=== PATIENT | male | born 1945 | race Caucasian/White ===

== ENCOUNTER → 2018-06-17 | Outpatient (CLI) | payer MEDICARE, OTHER ==
[2018-06-17 10:16] LABS: BASOPHILS % (AUTO) 0.9 % (0.0-5.0); EOSINOPHILS % (AUTO) 27.3 % (0.0-8.0); HEMATOCRIT 34.5 % (42-54); LYMPHOCYTES % (AUTO) 13.5 % (21.0-51.0); MEAN CORPUSCULAR HEMOGLOBIN 32.2 pg (27.0-33.0); MEAN CORPUSCULAR HGB CONC 33.7 g/dL (32.0-36.0); MEAN CORPUSCULAR VOLUME 95.6 fL (79-99); MONOCYTES % (AUTO) 9.6 % (3.0-13.0); NEUTROPHILS % (AUTO) 48.7 % (40.0-77.0); PLATELET COUNT (AUTO) 111 K/uL (130-400); RED BLOOD CELL COUNT(AUTO) 3.61 MIL/uL (4.50-6.20); RED CELL DISTRIBUTION WIDTH 14.6 % (11.0-15.5); WHITE BLOOD COUNT (AUTO) 8.2 K/uL (4.8-10.8)
[2018-06-17 10:36] LABS: INR 1.18 (0.85-1.15); PROTHROMBIN TIME 12.3 SEC (9.6-11.6)
[2018-06-17 10:38] LABS: ALBUMIN 1.5 g/dL (3.5-5.0); BILIRUBIN,TOTAL 0.9 mg/dL (0.2-1.0); CREATININE 1.3 mg/dL (0.5-1.5); POTASSIUM 4.9 mmol/L (3.5-5.1); TOTAL PROTEIN, SERUM 4.8 g/dL (6.0-8.3)
== END | disposition home or self-care (01) ==
LOC: RAH 09:41
PROVIDERS: ATTEND Internal Medicine Gastroenterology
DX: K70.31 Alcoholic cirrhosis of liver with ascites (principal); N28.1 Cyst of kidney, acquired
CPT/HCPCS: 36415; 76700; 80053; 82105; 85025; 85610; 93975

== ENCOUNTER → 2020-03-28 | Outpatient (CLI) | payer OTHER ==
[~2020-03-28] MED LIST: ALBUMIN (HUMAN) 25% 200 ML IV SCH
[2020-03-28 08:58] LABS: INR 1.32 (0.85-1.15); PROTHROMBIN TIME 14.1 SEC (9.6-11.6)
--- NOTE | 2020-03-28 09:12 | NUR ---
U/S GUIDED PARACENTESIS PROCEDURE PERFORMED BY DR. MEJIA. PUNCTURE SITE LEFT LOWER QUADRANT AND PATIENT TOLERATED PROCEDURE WELL. TOTAL REMOVED 6.1 LITERS OF YELLOW CLOUDY ASCITES FLUID. END OF PROCEDURE AT 0940 CATHETER REMOVED AND DRESSING APPLIED. NO BLEEDING NOTED. ALBUMIN 25% 50 GRAMS GIVEN IV PER ALBUMIN PROTOCOL. LEFT HAND PIV DC'D, BANDAID APPLIED, DRESSING DRY AND INTACT. DISCHARGE INSTRUCTIONS GIVEN TO PATIENT. PATIENT VERBALIZED UNDERSTANDING. PT DISCHARGED VIA W/C @ 1000. PT STABLE, AAO X 3 WITH NO C/O PAIN.
[2020-03-28 13:44] LABS: BASOPHILS % (AUTO) 0.5 % (0.0-5.0); EOSINOPHILS % (AUTO) 9.3 % (0.0-8.0); LYMPHOCYTES % (AUTO) 14.4 % (21.0-51.0); MEAN CORPUSCULAR HEMOGLOBIN 32.3 pg (27.0-33.0); MEAN CORPUSCULAR HGB CONC 32.4 g/dL (32.0-36.0); MEAN CORPUSCULAR VOLUME 99.7 fL (79-99); MONOCYTES % (AUTO) 11.9 % (3.0-13.0); NEUTROPHILS % (AUTO) 63.5 % (40.0-77.0); PLATELET COUNT (AUTO) 106 K/uL (130-400); RED BLOOD CELL COUNT(AUTO) 2.91 MIL/uL (4.50-6.20); RED CELL DISTRIBUTION WIDTH 14.2 % (11.0-15.5); WHITE BLOOD COUNT (AUTO) 7.7 K/uL (4.8-10.8)
[2020-03-28 13:53] LABS: ALBUMIN 1.4 g/dL (3.5-5.0); BILIRUBIN,TOTAL 1.2 mg/dL (0.2-1.0); POTASSIUM 5.2 mmol/L (3.5-5.1); TOTAL PROTEIN, SERUM 4.6 g/dL (6.0-8.3)
[2020-03-28 13:58] LABS: CREATININE 1.5 mg/dL (0.5-1.5)
[2020-03-28 15:14] LABS: ALBUMIN,BODY FLUID 0.1 g/dL
[2020-03-28 16:05] LABS: APPEARANCE BODY FLUID CLEAR (CLEAR); COLOR,BODY FLUID YELLOW (LT YELLOW); SPECIMENTYPE,BODY FLUID ASCITES
[2020-03-28 16:06] LABS: BODY FLUID RBC 29 /cu. mm.; BODY FLUID WBC 90 /cu. mm.; TOTAL VOLUME,BODY FLUID 6100 mL
[2020-03-28 16:10] LABS: BF LYMPHOCYTE 11 %; BF MESOTHELIAL 1 %; BF OTHER CELLS 1
== END | disposition home or self-care (01) ==
LOC: RAH 07:46
PROVIDERS: ATTEND Internal Medicine Gastroenterology
DX: K70.31 Alcoholic cirrhosis of liver with ascites (principal); Z79.01 Long term (current) use of anticoagulants
CPT/HCPCS: 36415; 49083; 80053; 82042; 84157; 85025; 85610; 87071; 87205; 89051; A4215; P9046; 96365

== ENCOUNTER → 2020-04-11 | Outpatient (CLI) | payer OTHER ==
--- NOTE | 2020-04-11 10:40 | NUR ---
U/S GUIDED PARACENTESIS PROCEDURE PERFORMED BY DR. HAWLEY. PUNCTURE SITE LEFT LOWER QUADRANT AND PATIENT TOLERATED PROCEDURE WELL. TOTAL REMOVED 8.2 LITERS OF CLOUDY YELLOW TINGED ASCITES FLUID. END OF PROCEDURE AT 1120. CATHETER REMOVED AND DRESSING APPLIED. NO BLEEDING NOTED. ALBUMIN 25% 50 GRAMS GIVEN IV PER ALBUMIN PROTOCOL. RIGHT HAND PIV DC'D, BANDAID APPLIED, DRESSING DRY AND INTACT. DISCHARGE INSTRUCTIONS GIVEN TO PATIENT. PATIENT VERBALIZED UNDERSTANDING. PT DISCHARGED VIA W/C @ 1145. PT STABLE, AAO X 3 WITH NO C/O PAIN.
[2020-04-11 13:25] LABS: ALBUMIN,BODY FLUID < 0.6 g/dL
[2020-04-11 14:44] LABS: APPEARANCE BODY FLUID CLEAR (CLEAR); BODY FLUID WBC 82 /cu. mm.; COLOR,BODY FLUID YELLOW (LT YELLOW); SPECIMENTYPE,BODY FLUID ASCITES; TOTAL VOLUME,BODY FLUID 8200 mL
[2020-04-11 14:45] LABS: BODY FLUID RBC 40 /cu. mm.
[2020-04-11 14:51] LABS: BF EOSINOPHIL 1 %; BF LYMPHOCYTE 2 %; BF MESOTHELIAL 32 %; BF MONOCYTE 11 %
== END | disposition home or self-care (01) ==
LOC: RAH 10:07
PROVIDERS: ATTEND Internal Medicine Gastroenterology
DX: K70.31 Alcoholic cirrhosis of liver with ascites (principal); J90 Pleural effusion, not elsewhere classified; N40.0 Benign prostatic hyperplasia without lower urinary tract symptoms; R60.0 Localized edema; Z88.8 Allergy status to other drugs, medicaments and biological substances; Z72.89 Other problems related to lifestyle; Z79.899 Other long term (current) drug therapy; Z79.01 Long term (current) use of anticoagulants; Z98.890 Other specified postprocedural states
CPT/HCPCS: 49083; 82042; 84157; 87071; 87205; 89051; A4215; P9046; 96365

== ENCOUNTER 2020-04-17 11:31 | Inpatient (IN) | payer OTHER ==
[~2020-04-17] VITALS: Ht 190.5 cm; Wt 137.5 kg
[2020-04-17] MEDS ORDERED: ALBUTEROL INHALER 90MCG/INH IH ONE (12:35)
[2020-04-17] MEDS ORDERED: SODIUM CHLORIDE 0.9% 1000ML 4,000 ML IV ONE (12:36)
[2020-04-17] MEDS ORDERED: CEFTRIAXONE SODIUM 1 GM ONE (12:36)
[2020-04-17] MEDS ORDERED: DEXAMETHASONE SOD PHOSPHATE 10MG/ML 1ML VIAL ONE (12:36)
[2020-04-17] MEDS ORDERED: ACETAMINOPHEN EXTRA STRENGTH 500 MG TABLET ONE (12:37)
[2020-04-17] MEDS ORDERED: AZITHROMYCIN 250 MG TABLET PO ONE (12:37)
[2020-04-17 12:46] LABS: BASOPHILS % (AUTO) 0.2 % (0.0-5.0); EOSINOPHILS % (AUTO) 43.8 % (0.0-8.0); HEMATOCRIT 27.8 % (42-54); LYMPHOCYTES % (AUTO) 3.5 % (21.0-51.0); MEAN CORPUSCULAR HEMOGLOBIN 32.4 pg (27.0-33.0); MEAN CORPUSCULAR HGB CONC 33.1 g/dL (32.0-36.0); MEAN CORPUSCULAR VOLUME 97.9 fL (79-99); MONOCYTES % (AUTO) 2.1 % (3.0-13.0); NEUTROPHILS % (AUTO) 44.3 % (40.0-77.0); PLATELET COUNT (AUTO) 82 K/uL (130-400); RED BLOOD CELL COUNT(AUTO) 2.84 MIL/uL (4.50-6.20); RED CELL DISTRIBUTION WIDTH 15.7 % (11.0-15.5); WHITE BLOOD COUNT (AUTO) 5.1 K/uL (4.8-10.8)
[2020-04-17 13:05] LABS: CREATININE 2.5 mg/dL (0.5-1.5); POTASSIUM 4.6 mmol/L (3.5-5.1)
[2020-04-17 13:11] LABS: INR 1.73 (0.85-1.15); PROTHROMBIN TIME 17.6 SEC (9.6-11.6)
[2020-04-17 13:13] LABS: PARTIAL THROMBOPLASTIN TIME 46.7 SEC (26.3-35.5)
[2020-04-17 13:32] LABS: ALBUMIN 1.4 g/dL (3.5-5.0); BILIRUBIN,TOTAL 2.4 mg/dL (0.2-1.0); TOTAL PROTEIN, SERUM 4.2 g/dL (6.0-8.3)
[2020-04-17 13:33] LABS: TROPONIN I 10.63 ng/mL (0.00-0.06)
[2020-04-17] MEDS: CEFEPIME HCL 2 GM VIAL IVP SCH (13:45)
[2020-04-17] MEDS ORDERED: ZOSYN 3.375GM+NS 50ML 50 ML IV ONE (13:56)
[2020-04-17] MEDS ORDERED: PHARMACY COMMUNICATION MISC SCH ×3 (14:00→17:00)
[2020-04-17] MEDS ORDERED: ALBUMIN (HUMAN) 25% 100 ML IV SCH (14:00)
[2020-04-17] MEDS ORDERED: LACTATED RINGERS 1000ML 1,000 ML IV SCH (14:00)
[2020-04-17] MEDS ORDERED: NOREPINEPHRINE 4MG/NS 250ML 250 ML IV SCH (14:30)
[2020-04-17] MEDS ORDERED: Vitamin B Complex/Vit C/Folic Acid PO SCH (14:30)
[2020-04-17] MEDS ORDERED: ALBUMIN (HUMAN) 25% 100 ML IV ONE ×2 (14:32→21:35)
[2020-04-17] MEDS ORDERED: VANCOMYCIN PROTOCOL PER PHARMACY IV SCH (14:45)
[2020-04-17 14:55] LABS: ABG BASE EXCESS -15.1 mmol/L (-2.0-3.0); ABG HCO3 10.1 mmol/L (21.0-28.0); ABG OXYGEN SATURATION 95.3 % (95.0-99.0); ABG PCO2 23 mmHg (35-48)
[2020-04-17] MEDS ORDERED: GLUCAGON 1MG KIT 1 MG ML IM PRN (15:15)
[2020-04-17] MEDS ORDERED: DEXTROSE 50%-WATER 50 ML DISP.SYRIN IV PRN (15:15)
[2020-04-17] MEDS ORDERED: MIDODRINE HCL 5 MG TABLET ONE (15:35)
[2020-04-17] MEDS ORDERED: OCTREOTIDE ACETATE 100 MCG/ML AMP ONE (15:36)
[2020-04-17] MEDS ORDERED: LACTULOSE 20 GM/30 ML UDCUP PO SCH (15:45)
[2020-04-17] MEDS ORDERED: NOREPINEPHRINE 4MG/NS 250ML 250 ML IV ONE ×2 (16:04→23:53)
[2020-04-17 16:11] LABS: APPEARANCE,URINE Cloudy (CLEAR); BILIRUBIN,URINE Small (NEGATIVE); COLOR,URINE Dark Yellow (YELLOW); GLUCOSE, URINE (UA) Negative (NEGATIVE); KETONES,URINE Negative (NEGATIVE); LEUKOCYTE ESTERASE ,URINE Trace (NEGATIVE); NITRATE,URINE Negative (NEGATIVE); OCCULT BLOOD,URINE Large (NEGATIVE); PROTEIN,URINE 300 mg/dL (NEGATIVE)
[2020-04-17] MEDS ORDERED: ASPIRIN 81MG TAB.CHEW ONE (16:32)
[2020-04-17 16:36] LABS: AMORPHOUS SEDIMENT,UR Few /LPF (None Seen); BACTERIA,URINE Moderate /HPF (None Seen); SQUAMOUS EPITHELIAL CELL,UR Rare /HPF (0-2)
[2020-04-17] MEDS ORDERED: ASPIRIN 81MG TAB.CHEW PO SCH (16:53)
[2020-04-17] MEDS ORDERED: LACTULOSE 20 GM/30 ML UDCUP ONE (16:57)
[2020-04-17] MEDS ORDERED: CEFEPIME HCL 2 GM VIAL ONE (17:31)
[2020-04-17] MEDS ORDERED: VANCOMYCIN 1GM+NS 250ML 250 ML IV ONE (17:32)
[2020-04-17] MEDS ORDERED: SODIUM CHLORIDE 0.9% 100 ML IV ONE (17:32)
[2020-04-17] MEDS ORDERED: VANCOMYCIN 1.75 GM in SODIUM CHLORIDE 0.9% 250 ML IV SCH (18:00)
[2020-04-17] MEDS ORDERED: COMPOUND IV REFRIGERATED 1 EACH IVSOLN MISC PRN (18:00)
[2020-04-17] MEDS ORDERED: FUROSEMIDE 10 MG/ML 4ML VIAL IVP SCH (18:30)
[2020-04-17] MEDS ORDERED: Vitamin B Complex/Vit C/Folic Acid ONE (20:09)
[2020-04-17] MEDS ORDERED: FUROSEMIDE 10 MG/ML 2ML VIAL ONE (20:09)
[2020-04-17 21:05] LABS: CHLORIDE,URINE RANDOM 77 mmol/L (110-250); POTASSIUM,URINE RANDOM 33 mmol/L (25-125); SODIUM,URINE RANDOM 52 mmol/l (40-220)
[2020-04-17] MEDS ORDERED: DEXTROSE 50%-WATER 50 ML DISP.SYRIN IV ONE (21:36)
[2020-04-17] MEDS ORDERED: HYDROCODONE/ACETAMINOPHEN 10/325 MG TAB ONE (22:18)
[2020-04-18] VITALS (12 sets, daily range): BP systolic 86–120; BP diastolic 53–70
[2020-04-18] MEDS ORDERED: LACTULOSE 20 GM/30 ML UDCUP ONE (00:03)
[2020-04-18] MEDS ORDERED: MIDODRINE HCL 5 MG TABLET ONE ×2 (00:04→08:20)
[2020-04-18] MEDS ORDERED: OCTREOTIDE ACETATE 200 MCG/ML 5 ML VIAL ONE (00:07)
[2020-04-18] MEDS: FUROSEMIDE 10 MG/ML 4ML VIAL IVP SCH ×3 (02:00→14:00)
[2020-04-18] MEDS ORDERED: FUROSEMIDE 10 MG/ML 4ML VIAL ONE ×2 (03:42→12:23)
[2020-04-18 04:06] LABS: BASOPHILS % (AUTO) 0.1 % (0.0-5.0); EOSINOPHILS % (AUTO) 0.3 % (0.0-8.0); HEMATOCRIT 27.6 % (42-54); LYMPHOCYTES % (AUTO) 2.8 % (21.0-51.0); MEAN CORPUSCULAR HEMOGLOBIN 33.2 pg (27.0-33.0); MEAN CORPUSCULAR VOLUME 100.7 fL (79-99); MONOCYTES % (AUTO) 5.1 % (3.0-13.0); NEUTROPHILS % (AUTO) 91.5 % (40.0-77.0); PLATELET COUNT (AUTO) 66 K/uL (130-400); RED BLOOD CELL COUNT(AUTO) 2.74 MIL/uL (4.50-6.20); RED CELL DISTRIBUTION WIDTH 15.9 % (11.0-15.5); WHITE BLOOD COUNT (AUTO) 19.6 K/uL (4.8-10.8)
[2020-04-18 04:20] LABS: B-TYPE NATRIURETIC PEPTIDE 1310 pg/mL (0-100)
[2020-04-18 04:25] LABS: ALBUMIN 1.8 g/dL (3.5-5.0); BILIRUBIN,TOTAL 1.9 mg/dL (0.2-1.0); CREATININE 2.9 mg/dL (0.5-1.5); MAGNESIUM 3.1 mg/dL (1.80-2.40); POTASSIUM 5.2 mmol/L (3.5-5.1); TOTAL PROTEIN, SERUM 4.5 g/dL (6.0-8.3)
[2020-04-18] MEDS ORDERED: ALBUMIN (HUMAN) 25% 0 ML IV ONE (04:32)
[2020-04-18 04:35] LABS: INR 1.97 (0.85-1.15); PROTHROMBIN TIME 19.8 SEC (9.6-11.6)
[2020-04-18] MEDS ORDERED: ALBUMIN (HUMAN) 25% 100 ML IV ONE ×2 (04:57→14:06)
[2020-04-18] MEDS ORDERED: NOREPINEPHRINE 4MG/NS 250ML 250 ML IV ONE ×3 (05:02→18:14)
[2020-04-18 06:21] LABS: ABG BASE EXCESS -15.1 mmol/L (-2.0-3.0); ABG HCO3 12.1 mmol/L (21.0-28.0); ABG OXYGEN SATURATION 95.3 % (95.0-99.0); ABG PCO2 33 mmHg (35-48)
[2020-04-18] MEDS ORDERED: SODIUM BICARB 50MEQ 50ML VIAL 50 ML ONE ×2 (06:34→16:23)
[2020-04-18] MEDS: ASPIRIN 81MG TAB.CHEW PO SCH (07:35)
[2020-04-18] MEDS: Vitamin B Complex/Vit C/Folic Acid PO SCH (07:35)
[2020-04-18] MEDS: RIFAXIMIN 550 MG TABLET PO SCH ×3 (07:35→22:17)
[2020-04-18] MEDS: CEFEPIME HCL 2 GM VIAL IVP SCH (07:37)
[2020-04-18] MEDS ORDERED: ASPIRIN 81MG TAB.CHEW ONE (08:19)
[2020-04-18] MEDS ORDERED: Vitamin B Complex/Vit C/Folic Acid ONE (08:20)
[2020-04-18] MEDS ORDERED: OCTREOTIDE ACETATE 100 MCG/ML AMP ONE (08:20)
[2020-04-18] MEDS ORDERED: AZITHROMYCIN 500MG+NS 250ML 250 ML IV SCH (09:00)
[2020-04-18] MEDS ORDERED: AZITHROMYCIN 500MG+NS 250ML 250 ML IV ONE (11:22)
[2020-04-18] MEDS ORDERED: CEFEPIME HCL 2 GM VIAL ONE (13:59)
[2020-04-18] MEDS ORDERED: SODIUM CHLORIDE 0.9% 50 ML IV ONE (14:00)
[2020-04-18] MEDS ORDERED: ALBUMIN (HUMAN) 25% 50 ML IV ONE (14:01)
[2020-04-18] MEDS ORDERED: DEXTROSE 5%-LACTATED RINGERS 1,000 ML IV ONE (15:13)
[2020-04-18 15:39] LABS: CREATININE 3.2 mg/dL (0.5-1.5)
[2020-04-18 15:44] LABS: POTASSIUM 6.2 mmol/L (3.5-5.1)
[2020-04-18] MEDS ORDERED: DEXTROSE 50%-WATER 50 ML DISP.SYRIN IV SCH (16:00)
[2020-04-18] MEDS ORDERED: SODIUM BICARB 8.4% 50ML SYRINGE IVP SCH (16:00)
[2020-04-18] MEDS ORDERED: CALCIUM GLUCONATE 1 GM/10 ML VIAL IV SCH (16:00)
[2020-04-18] MEDS ORDERED: INSULIN HUMULIN R 100 UNIT/ML 3ML IV SCH (16:00)
[2020-04-18] MEDS ORDERED: SODIUM POLYSTYRENE SULFONATE 15 GM/60 ML ML PO SCH (16:00)
[2020-04-18] MEDS ORDERED: SODIUM POLYSTYRENE SULFONATE 15 GM/60 ML ML ONE (16:23)
[2020-04-18] MEDS ORDERED: CALCIUM GLUCONATE 1 GM/10 ML VIAL IV ONE (16:23)
[2020-04-18] MEDS ORDERED: DEXTROSE 50%-WATER 50 ML DISP.SYRIN IV ONE (16:24)
[2020-04-18] MEDS ORDERED: INSULIN HUMULIN R 100 UNIT/ML 3ML ONE (16:24)
[2020-04-18] MEDS ORDERED: ALBUMIN (HUMAN) 25% 50 ML IV SCH (17:00)
[2020-04-18] MEDS ORDERED: SODIUM ZIRCONIUM CYCLOSILICATE 10 GM POWD.PACK PO SCH (17:15)
[2020-04-18 17:17] LABS: ABG BASE EXCESS -12.7 mmol/L (-2.0-3.0); ABG HCO3 14.6 mmol/L (21.0-28.0); ABG OXYGEN SATURATION 97.8 % (95.0-99.0); ABG PCO2 39 mmHg (35-48)
[2020-04-18] MEDS ORDERED: SODIUM CHLORIDE 0.9% 500ML 500 ML IV ONE (18:01)
[2020-04-18] MEDS: MIDODRINE HCL 5 MG TABLET PO SCH (22:18)
[2020-04-19] VITALS (27 sets, daily range): BP systolic 87–120; BP diastolic 41–77
[2020-04-19 04:24] LABS: ABG BASE EXCESS -9.2 mmol/L (-2.0-3.0); ABG HCO3 17.3 mmol/L (21.0-28.0); ABG OXYGEN SATURATION 99.5 % (95.0-99.0); ABG PCO2 40 mmHg (35-48)
[2020-04-19 04:36] LABS: EOSINOPHILS % (AUTO) 2.6 % (0.0-8.0); HEMATOCRIT 26.7 % (42-54); LYMPHOCYTES % (AUTO) 2.1 % (21.0-51.0); MEAN CORPUSCULAR HEMOGLOBIN 33.1 pg (27.0-33.0); MEAN CORPUSCULAR HGB CONC 33.3 g/dL (32.0-36.0); MEAN CORPUSCULAR VOLUME 99.3 fL (79-99); MONOCYTES % (AUTO) 8.2 % (3.0-13.0); NEUTROPHILS % (AUTO) 85.4 % (40.0-77.0); PLATELET COUNT (AUTO) 62 K/uL (130-400); RED BLOOD CELL COUNT(AUTO) 2.69 MIL/uL (4.50-6.20); WHITE BLOOD COUNT (AUTO) 25.7 K/uL (4.8-10.8)
[2020-04-19 04:44] LABS: ALBUMIN 2.3 g/dL (3.5-5.0); BILIRUBIN,DIRECT 0.9 mg/dL (0.0-0.3); BILIRUBIN,TOTAL 2.1 mg/dL (0.2-1.0); CREATININE 3.4 mg/dL (0.5-1.5); POTASSIUM 5.9 mmol/L (3.5-5.1); TOTAL PROTEIN, SERUM 4.9 g/dL (6.0-8.3)
[2020-04-19 04:52] LABS: INR 1.91 (0.85-1.15); PROTHROMBIN TIME 19.3 SEC (9.6-11.6)
[2020-04-19 04:53] LABS: PARTIAL THROMBOPLASTIN TIME 54.3 SEC (26.3-35.5)
[2020-04-19] MEDS ORDERED: PHARMACY COMMUNICATION MISC SCH (05:15)
[2020-04-19] MEDS ORDERED: SODIUM ZIRCONIUM CYCLOSILICATE 10 GM POWD.PACK PO NR (06:30)
[2020-04-19] MEDS: MIDODRINE HCL 5 MG TABLET PO SCH (06:51)
[2020-04-19] MEDS: RIFAXIMIN 550 MG TABLET PO SCH (10:49)
[2020-04-19] MEDS: Vitamin B Complex/Vit C/Folic Acid PO SCH (10:49)
[2020-04-19] MEDS: ASPIRIN 81MG TAB.CHEW PO SCH (10:49)
[2020-04-19] MEDS ORDERED: ACETAMINOPHEN 650 MG SUPPOSITORY RC PRN (11:30)
[2020-04-19] MEDS ORDERED: LORAZEPAM 1 MG TABLET PO PRN (11:30)
[2020-04-19] MEDS ORDERED: SCOPOLAMINE HYDROBROMIDE 1 EACH ADH..PATCH TD SCH (11:30)
[2020-04-19] MEDS ORDERED: HYDROMORPHONE HCL 2 MG/ML VIAL IVP ONE (11:30)
[2020-04-19] MEDS ORDERED: MORPHINE SULFATE 20MG/ML ORAL 0.25 ML PO PRN ×2 (11:30)
[2020-04-19] MEDS ORDERED: ONDANSETRON HCL 4 MG/2 ML VIAL IVP PRN (11:30)
[2020-04-19] MEDS ORDERED: ACETAMINOPHEN 325 MG TAB PO PRN (11:30)
[2020-04-19] MEDS ORDERED: HALOPERIDOL LACTATE 5 MG/ML VIAL IV PRN (11:30)
[2020-04-19] MEDS ORDERED: ARTIFICAL TEARS SOL 15 ML OU PRN ×2 (11:30→11:45)
[2020-04-19] MEDS ORDERED: ATROPINE SULFATE 5 ML DROPS PO PRN ×2 (11:30→11:45)
[2020-04-19] MEDS ORDERED: HYDROMORPHONE 1 MG/1 ML AMP IVP PRN ×2 (11:45→14:15)
== END 2020-04-19 13:35 | disposition expired | DRG 871 ==
LOC: EDH 11:31 → EDHIP 13:41 → 2CH 04-18 20:37
PROVIDERS: ADMIT Internal Medicine; ATTEND Internal Medicine
PROC: 5A09357 Assistance with Respiratory Ventilation, Less than 24 Consecutive Hours, Continuous Positive Airway Pressure (ICD-10-PCS; principal; 2020-04-18)
DX: A41.9 Sepsis, unspecified organism (principal); R65.21 Severe sepsis with septic shock; J96.01 Acute respiratory failure with hypoxia; I21.4 Non-ST elevation (NSTEMI) myocardial infarction; N17.0 Acute kidney failure with tubular necrosis; I50.41 Acute combined systolic (congestive) and diastolic (congestive) heart failure; K76.7 Hepatorenal syndrome; J18.1 Lobar pneumonia, unspecified organism; E87.1 Hypo-osmolality and hyponatremia; M62.82 Rhabdomyolysis; D68.9 Coagulation defect, unspecified; I13.0 Hypertensive heart and chronic kidney disease with heart failure and stage 1 through stage 4 chronic kidney disease, or unspecified chronic kidney disease; K76.6 Portal hypertension; I42.9 Cardiomyopathy, unspecified; E87.4 Mixed disorder of acid-base balance; Z66 Do not resuscitate; E87.5 Hyperkalemia; Z20.828 Contact with and (suspected) exposure to other viral communicable diseases; K70.31 Alcoholic cirrhosis of liver with ascites; E16.2 Hypoglycemia, unspecified; D69.6 Thrombocytopenia, unspecified; R57.0 Cardiogenic shock; K72.90 Hepatic failure, unspecified without coma; N18.9 Chronic kidney disease, unspecified; D53.9 Nutritional anemia, unspecified; D73.1 Hypersplenism; E66.9 Obesity, unspecified; Z68.37 Body mass index [BMI] 37.0-37.9, adult; Z79.899 Other long term (current) drug therapy
CPT/HCPCS: 36415; 36600; 71045; 76700; 80048; 80051; 80053; 80076; 81001; 82140; 82435; 82550; 82570; 82803; 82947; 82948; 83605; 83735; 83874; 83880; 84132; 84145; 84295; 84484; 85018; 85025; 85610; 85730; 86738; 86900; 86901; 87040; 87077; 87088; 87186; 87426; 87449; 87804; 92610; 93005; 93306; 93970; 94660; 99291; G0378; J0456; J0610; J0692; J0696; J1100; J1170; J1630; J1815; J1940; J2354; J2405; J2543; J3370; J3490; J7030; J7040; J7050; J7070; P9046; P9047